=== PATIENT | female | born 1960 | race Caucasian/White ===

== ENCOUNTER 2016-06-01 16:07 | Inpatient (IN) | payer MEDICAID ==
[~2016-06-01] VITALS: Ht 167.6 cm; Wt 78.0 kg
[~2016-06-01 16:07] MED LIST: BENA20TA4 PO; NIFE30TA76 PO
[2016-06-01 17:44] LABS: Basophils # (auto) 0 uL; Basophils % (auto) 0.1 % (0.0-2.0); Eosinophils # (auto) 0.1 uL; Eosinophils % (auto) 0.6 % (0.0-7.0); Hematocrit 46.8 % (36.0-46.0); Hemoglobin 15.9 g/dL (12.2-16.2); Lymphocytes # (auto) 1.2 uL; Lymphocytes % (auto) 8.8 % (10.0-50.0); Mean Corpuscular Hemoglobin 31.5 pg (28.0-32.0); Mean Corpuscular Hgb Conc. 34.1 g/dL (32.0-36.0); Mean Corpuscular Volume 92.5 fL (80.0-100.0); Mean Platelet Volume 10.1 fL (7.4-10.4); Monocytes # (auto) 0.4 uL; Monocytes % (auto) 3.1 % (0.0-12.0); Neutrophils % (auto) 87.4 % (37.0-80.0); Platelet Count (auto) 313 10^3/uL (140-450); Red Cell Distribution Width 12.8 % (11.6-16.0); White Blood Cell 13.7 10^3/uL (4.4-10.8)
[2016-06-01 18:10] LABS: Albumin 4.2 g/dL (3.4-5.0); Anion Gap 13 (5-15); Blood Urea Nitrogen 18 mg/dL (7-18); Calcium 9.2 mg/dL (8.5-10.1); Carbon Dioxide 24 mmol/L (21-32); Chloride 102 mmol/L (98-107); Glucose 113 mg/dL (74-106); Magnesium 2.2 mg/dL (1.6-2.6); Sodium 139 mmol/L (136-145)
[2016-06-01 18:12] LABS: Aspartate Aminotransferase 56 U/L (15-37); BUN/Creatinine Ratio 26.1; GFR African American 113 mL/min; GFR Non-African American 93 mL/min
[2016-06-01 18:17] LABS: Alkaline Phosphatase 109 U/L (45-117); Bilirubin, Total 0.9 mg/dL (0.2-1.0); Total Protein 8.8 g/dL (6.4-8.2)
[2016-06-01 20:11] LABS: Urine RBC None Seen /hpf (0 - 4)
[2016-06-01] MEDS ORDERED: PIPERACILLIN-TAZO 4.5GM 100 ML IV ONE (20:15)
[2016-06-01 20:34] LABS: Urine Bilirubin Negative (Negative); Urine Blood Negative /uL (Negative); Urine Color Yellow (Yellow); Urine Glucose Normal (Normal); Urine Ketone Negative (Negative); Urine Nitrite Negative (Negative); Urine Squamous Epithelial Cell FEW /hpf (<5); Urine Urobilinogen Normal (Negative); Urine pH 5.5 (5.0-8.0)
[2016-06-01] MEDS ORDERED: MORPHINE SULFATE 4 MG/ML SYRG IV ONE (21:15)
[2016-06-01] MEDS ORDERED: ONDANSETRON HCL 4 MG/2 ML VIAL IV ONE (21:15)
[2016-06-01] MEDS ORDERED: ONDANSETRON HCL 4 MG/2 ML VIAL IV PRN (21:30)
[2016-06-01] MEDS ORDERED: SODIUM CHLORIDE 0.9% 1,000 ML IV ONE (21:30)
[2016-06-01] MEDS ORDERED: HYDROmorphone HCL 2 MG/ML VL IV ONE (22:15)
[2016-06-01 23:00] VITALS: BP 123/68
[2016-06-01] MEDS: FAMOTIDINE (10MG/ML) 2ML VL IV SCH (23:02)
[2016-06-01] MEDS: ENOXAPARIN SOD 40 MG/0.4 ML SYRINGE SC SCH (23:03)
[2016-06-01] MEDS: metroNIDAZOLE 500MG/100ML 100 ML IV SCH (23:28)
[2016-06-01 23:52] VITALS: BP 123/68
[2016-06-02] VITALS (7 sets, daily range): BP systolic 92–153; BP diastolic 58–72
[2016-06-02] MEDS: PIPERACILLIN-TAZOB 3.375GM 100 ML IV SCH ×4 (01:48→21:11)
[2016-06-02] MEDS: MORPHINE SULFATE 4 MG/ML SYRG IV PRN ×3 (02:29→21:11)
[2016-06-02] MEDS: metroNIDAZOLE 500MG/100ML 100 ML IV SCH ×4 (05:32→23:33)
[2016-06-02 07:06] LABS: Basophils # (auto) 0 uL; Basophils % (auto) 0.3 % (0.0-2.0); Eosinophils # (auto) 0.1 uL; Eosinophils % (auto) 0.9 % (0.0-7.0); Hematocrit 38.3 % (36.0-46.0); Lymphocytes # (auto) 1.6 uL; Lymphocytes % (auto) 17.5 % (10.0-50.0); Mean Corpuscular Hemoglobin 31.6 pg (28.0-32.0); Mean Corpuscular Hgb Conc. 33.9 g/dL (32.0-36.0); Mean Corpuscular Volume 93.3 fL (80.0-100.0); Mean Platelet Volume 10.4 fL (7.4-10.4); Monocytes # (auto) 0.6 uL; Monocytes % (auto) 6.5 % (0.0-12.0); Neutrophils # (auto) 6.7 uL; Neutrophils % (auto) 74.8 % (37.0-80.0); Platelet Count (auto) 240 10^3/uL (140-450); Red Cell Distribution Width 12.6 % (11.6-16.0)
[2016-06-02 07:19] LABS: Potassium 3.7 mmol/L (3.5-5.1)
[2016-06-02 07:24] LABS: Albumin 3.1 g/dL (3.4-5.0); BUN/Creatinine Ratio 18.2; Bilirubin, Total 0.9 mg/dL (0.2-1.0); Calcium 7.9 mg/dL (8.5-10.1); Total Protein 6.7 g/dL (6.4-8.2)
[2016-06-02] MEDS: NIFEdipine ER 30 MG TAB PO SCH (10:00)
[2016-06-02] MEDS: ENOXAPARIN SOD 40 MG/0.4 ML SYRINGE SC SCH (10:28)
[2016-06-02] MEDS: BENAZEPRIL HCL 10 MG TAB PO SCH (10:29)
[2016-06-02] MEDS: FAMOTIDINE (10MG/ML) 2ML VL IV SCH ×2 (10:40→21:11)
[2016-06-03] VITALS (7 sets, daily range): BP systolic 87–119; BP diastolic 55–76
[2016-06-03] MEDS: MORPHINE SULFATE 4 MG/ML SYRG IV PRN (01:33)
[2016-06-03] MEDS: PIPERACILLIN-TAZOB 3.375GM 100 ML IV SCH ×4 (02:12→22:25)
[2016-06-03] MEDS: metroNIDAZOLE 500MG/100ML 100 ML IV SCH ×4 (05:11→23:00)
[2016-06-03 06:19] LABS: Basophils # (auto) 0 uL; Basophils % (auto) 0.5 % (0.0-2.0); Eosinophils # (auto) 0.2 uL; Hematocrit 37.8 % (36.0-46.0); Hemoglobin 12.8 g/dL (12.2-16.2); Lymphocytes # (auto) 1.6 uL; Lymphocytes % (auto) 29.3 % (10.0-50.0); Mean Corpuscular Hemoglobin 31.5 pg (28.0-32.0); Mean Corpuscular Hgb Conc. 33.8 g/dL (32.0-36.0); Mean Corpuscular Volume 93.3 fL (80.0-100.0); Mean Platelet Volume 10.1 fL (7.4-10.4); Monocytes # (auto) 0.6 uL; Monocytes % (auto) 10.2 % (0.0-12.0); Neutrophils # (auto) 3.2 uL; Platelet Count (auto) 234 10^3/uL (140-450); Red Cell Distribution Width 12.7 % (11.6-16.0); White Blood Cell 5.6 10^3/uL (4.4-10.8)
[2016-06-03 06:38] LABS: Albumin 3.1 g/dL (3.4-5.0); BUN/Creatinine Ratio 23.8; Calcium 8.2 mg/dL (8.5-10.1)
[2016-06-03 06:40] LABS: Bilirubin, Total 0.5 mg/dL (0.2-1.0); Total Protein 6.5 g/dL (6.4-8.2)
[2016-06-03] MEDS: FAMOTIDINE (10MG/ML) 2ML VL IV SCH ×2 (09:01→22:25)
[2016-06-03] MEDS: ENOXAPARIN SOD 40 MG/0.4 ML SYRINGE SC SCH (09:02)
[2016-06-03] MEDS: BENAZEPRIL HCL 10 MG TAB PO SCH (09:02)
[2016-06-03] MEDS: NIFEdipine ER 30 MG TAB PO SCH (09:03)
[2016-06-03] MEDS ORDERED: MORPHINE SULF INJ 2 MG/ML SYRINGE 1ML IV PRN (14:45)
[2016-06-04] MEDS: PIPERACILLIN-TAZOB 3.375GM 100 ML IV SCH (02:37)
[2016-06-04 05:00] VITALS: BP 123/77
[2016-06-04] MEDS: metroNIDAZOLE 500MG/100ML 100 ML IV SCH (05:37)
[2016-06-04 09:00] VITALS: BP 134/62
[2016-06-04 09:39] VITALS: BP 108/65
== END 2016-06-04 10:00 | disposition home or self-care (01) | DRG 244 ==
LOC: ER 16:21 → OVERFLOW 16:22 → EAST 22:19
PROVIDERS: ADMIT Family Medicine; ATTEND Internal Medicine
DX: K57.32 Diverticulitis of large intestine without perforation or abscess without bleeding (principal); K76.0 Fatty (change of) liver, not elsewhere classified; E44.1 Mild protein-calorie malnutrition; N28.1 Cyst of kidney, acquired; I10 Essential (primary) hypertension; Z90.49 Acquired absence of other specified parts of digestive tract; Z82.49 Family history of ischemic heart disease and other diseases of the circulatory system; Z87.19 Personal history of other diseases of the digestive system; Z90.89 Acquired absence of other organs; Z98.51 Tubal ligation status; Z80.9 Family history of malignant neoplasm, unspecified; Z82.69 Family history of other diseases of the musculoskeletal system and connective tissue; Z68.27 Body mass index [BMI] 27.0-27.9, adult; Z88.2 Allergy status to sulfonamides
CPT/HCPCS: 36415; 74176; 80053; 81001; 83735; 84484; 85025; 87040; 93005; 96361; 96374; 96375; J2405; J2543; J3490

== ENCOUNTER 2016-06-08 17:12 | Emergency (ER) | payer MEDICAID ==
[~2016-06-08] VITALS: Ht 167.6 cm; Wt 72.6 kg
[2016-06-08 18:27] LABS: Basophils # (auto) 0 uL; Basophils % (auto) 0.4 % (0.0-2.0); Eosinophils # (auto) 0.2 uL; Eosinophils % (auto) 1.7 % (0.0-7.0); Hematocrit 43.5 % (36.0-46.0); Hemoglobin 14.5 g/dL (12.2-16.2); Lymphocytes # (auto) 1.7 uL; Lymphocytes % (auto) 15.3 % (10.0-50.0); Mean Corpuscular Hgb Conc. 33.3 g/dL (32.0-36.0); Mean Corpuscular Volume 93.1 fL (80.0-100.0); Mean Platelet Volume 10.2 fL (7.4-10.4); Monocytes # (auto) 0.7 uL; Monocytes % (auto) 6.8 % (0.0-12.0); Neutrophils # (auto) 8.3 uL; Neutrophils % (auto) 75.8 % (37.0-80.0); Platelet Count (auto) 321 10^3/uL (140-450); Red Cell Distribution Width 12.6 % (11.6-16.0); White Blood Cell 10.9 10^3/uL (4.4-10.8)
[2016-06-08 18:30] LABS: Albumin 3.7 g/dL (3.4-5.0); BUN/Creatinine Ratio 32.3; Calcium 8.5 mg/dL (8.5-10.1); Potassium 3.9 mmol/L (3.5-5.1)
[2016-06-08 18:33] LABS: Bilirubin, Total 0.4 mg/dL (0.2-1.0); Total Protein 7.7 g/dL (6.4-8.2)
[2016-06-08] MEDS ORDERED: SODIUM CHLORIDE 0.9% 500 ML IVB ONE (20:15)
[2016-06-08] MEDS ORDERED: MORPHINE SULFATE 4 MG/ML SYRG IV ONE (20:15)
[2016-06-08] MEDS ORDERED: ONDANSETRON HCL 4 MG/2 ML VIAL IV ONE (20:15)
[2016-06-08 21:20] LABS: Amylase 45 U/L (25-115)
[2016-06-08 23:11] LABS: Urine Bilirubin Negative (Negative); Urine Blood Negative /uL (Negative); Urine Color Yellow (Yellow); Urine Glucose Normal (Normal); Urine Ketone Negative (Negative); Urine Mucus FEW (None Seen); Urine Nitrite Negative (Negative); Urine RBC <1 /hpf (0 - 4); Urine Squamous Epithelial Cell FEW /hpf (<5); Urine Urobilinogen Normal (Negative); Urine pH 5.5 (5.0-8.0)
[2016-06-08 23:22] VITALS: BP 110/62
[2016-06-09] MEDS: metroNIDAZOLE 500 MG TAB PO ONE (00:45)
[2016-06-09] MEDS ORDERED: cefTRIAXone 1GM/50ML D5W 50 ML IV ONE (00:45)
[2016-06-09] MEDS ORDERED: cefTRIAXone SOD 1,000 MG VL IM ONE (01:45)
== END 2016-06-09 00:53 | disposition home or self-care (01) ==
LOC: ER 17:16
DX: K57.90 Diverticulosis of intestine, part unspecified, without perforation or abscess without bleeding (principal); I10 Essential (primary) hypertension; Z88.1 Allergy status to other antibiotic agents
CPT/HCPCS: 36415; 74176; 80053; 81001; 82150; 83690; 85025; 94761; 96361; 96372; 96374; 96375; 99285; J0696; J2270; J2405; J7040

== ENCOUNTER 2016-07-18 08:40 | Emergency (ER) | payer MEDICAID ==
[~2016-07-18] VITALS: Ht 167.6 cm; Wt 68.0 kg
[2016-07-18 09:35] LABS: Basophils # (auto) 0 uL; Basophils % (auto) 0.5 % (0.0-2.0); Eosinophils # (auto) 0.2 uL; Eosinophils % (auto) 3.3 % (0.0-7.0); Hematocrit 43.5 % (36.0-46.0); Hemoglobin 14.9 g/dL (12.2-16.2); Lymphocytes # (auto) 1.3 uL; Lymphocytes % (auto) 20.3 % (10.0-50.0); Mean Corpuscular Hemoglobin 31.4 pg (28.0-32.0); Mean Corpuscular Hgb Conc. 34.2 g/dL (32.0-36.0); Mean Corpuscular Volume 91.9 fL (80.0-100.0); Mean Platelet Volume 10.3 fL (7.4-10.4); Monocytes # (auto) 0.4 uL; Monocytes % (auto) 5.6 % (0.0-12.0); Neutrophils # (auto) 4.5 uL; Neutrophils % (auto) 70.3 % (37.0-80.0); Platelet Count (auto) 222 10^3/uL (140-450); Red Cell Distribution Width 13.2 % (11.6-16.0); White Blood Cell 6.4 10^3/uL (4.4-10.8)
[2016-07-18 10:09] LABS: Albumin 3.8 g/dL (3.4-5.0); Alkaline Phosphatase 84 U/L (45-117); Anion Gap 10 (5-15); Aspartate Aminotransferase 31 U/L (15-37); BUN/Creatinine Ratio 27.6; Bilirubin, Total 0.4 mg/dL (0.2-1.0); Blood Urea Nitrogen 16 mg/dL (7-18); Calcium 8.9 mg/dL (8.5-10.1); Carbon Dioxide 27 mmol/L (21-32); Chloride 108 mmol/L (98-107); GFR African American 138 mL/min; GFR Non-African American 114 mL/min; Glucose 122 mg/dL (74-106); Magnesium 2.1 mg/dL (1.6-2.6); Potassium 4.3 mmol/L (3.5-5.1); Sodium 145 mmol/L (136-145); Total Protein 7.8 g/dL (6.4-8.2)
[2016-07-18] MEDS ORDERED: MORPHINE SULFATE 4 MG/ML SYRG IV ONE (10:30)
[2016-07-18] MEDS ORDERED: SODIUM CHLORIDE 0.9% 1,000 ML IV ONE (10:30)
[2016-07-18] MEDS ORDERED: ASPirin 81 mg TAB PO ONE (10:30)
[2016-07-18] MEDS ORDERED: ONDANSETRON HCL 4 MG/2 ML VIAL IV ONE (10:30)
[2016-07-18 10:52] VITALS: BP 120/79
== END 2016-07-18 11:49 | disposition home or self-care (01) ==
LOC: ER 08:40
DX: R07.89 Other chest pain (principal); I10 Essential (primary) hypertension; Z88.2 Allergy status to sulfonamides
CPT/HCPCS: 36415; 71020; 80053; 83735; 84443; 84484; 85025; 85379; 93005; 94761; 96361; 96374; 96375; 99285; J2270; J2405; J7030

== ENCOUNTER 2017-09-26 11:14 | Emergency (ER) | payer SELFPAY ==
[~2017-09-26] VITALS: Ht 167.6 cm; Wt 68.0 kg
[~2017-09-26 11:14] MED LIST changes: +BENA20TA14 PO; -BENA20TA4 PO
[2017-09-26 11:31] VITALS: BP 91/55
[2017-09-26 11:52] LABS: Urine Bacteria FEW /hpf (None Seen); Urine Blood Negative /uL (Negative); Urine Hyaline Cast FEW /lpf (0 - 2); Urine Mucus FEW (None Seen); Urine Specific Gravity 1.017 (1.001-1.035); Urine WBC 39 /hpf (0 - 5)
== END 2017-09-26 12:25 | disposition home or self-care (01) ==
LOC: ER 11:14
DX: N39.0 Urinary tract infection, site not specified (principal); I10 Essential (primary) hypertension; Z90.49 Acquired absence of other specified parts of digestive tract; Z90.89 Acquired absence of other organs; Z98.51 Tubal ligation status; Z88.2 Allergy status to sulfonamides
CPT/HCPCS: 81001